=== PATIENT | female | born 1955 | race Caucasian/White ===

== ENCOUNTER → 2017-01-10 | Outpatient (CLI) | payer SELFPAY ==
--- NOTE | 2017-01-10 17:23 | MAM ---
History: Well woman exam. Date of exam: 01/10/2017 Services provided: Bilateral full field digital screening mammography. CAD, the images were reviewed with R2 computer aided detection. FINDINGS: Glandular tissue is scattered glandular pattern. Comparison with 2016 exam no dominant mass, architectural distortion or clustered microcalcification. IMPRESSION: Benign exam Recommendation: Routine annual mammography BIRAD CATEGORY: 2 BENIGN Electronically signed by: Agueda Grace MD 01/10/2017 5:22 PM CDT Workstation: [id number]
== END | disposition home or self-care (01) ==
LOC: MAMMO 08:22
PROVIDERS: ATTEND Nurse Practitioner Family
DX: Z12.31 Encounter for screening mammogram for malignant neoplasm of breast (principal)

== ENCOUNTER → 2018-01-16 | Outpatient (CLI) | payer OTHER, SELFPAY ==
--- NOTE | 2018-01-18 15:46 | MAM ---
EXAM DESCRIPTION: 3D Screening BILATERAL : Digital Mammography. CLINICAL HISTORY: 62 years Female SCREENING . No complaints. No family history breast cancer. Childbirth. Postmenopausal. Currently on HRT. COMPARISON: 2-D digital screening bilateral study 01/10/2017.. Report from prior examination also reviewed. TECHNIQUE: Bilateral CC and MLO projection full-field images, 3-D tomosynthesis digital mammographic technique. CAD not utilized. FINDINGS: The breast parenchymal density pattern is: Heterogeneously dense breast tissue, which may obscure small masses. No skin thickening or nipple retraction. Bilateral solitary microcalcifications. No new focal, stellate mass or density, focal asymmetry , and no suspicious microcalcifications bilaterally. Stable mammograms compared to prior study, taking into account differences in mammographic technique. IMPRESSION: BI-RADS CATEGORY: 2 - BENIGN FINDINGS. FOLLOW UP: Routine digital bilateral screening, one year interval from December 2017. Written communication explaining the IMPRESSION and follow-up, will be mailed to the patient and referring health care provider. According to the [employer], yearly mammograms are recommended starting at age 40 and continuing as long as a woman is in good health. Any breast change noted on a breast self-exam should be reported promptly to the patient's healthcare provider. Breast MRI is recommended for women with an approximately 20-25% or greater lifetime risk of breast cancer, including women with a strong family history of breast or ovarian cancer and women who have been treated for Hodgkin's disease. A negative mammographic report should not delay tissue diagnosis in patients with significant clinical history or physical findings. Extremely dense breast tissue limits the sensitivity of digital mammography. Electronically signed by: Familia Lees MD 01/18/2018 3:45 PM CDT
== END ==
LOC: MAMMO 08:17
PROVIDERS: ATTEND Nurse Practitioner Family
DX: Z12.31 Encounter for screening mammogram for malignant neoplasm of breast (principal)

== ENCOUNTER → 2019-03-19 | Outpatient (CLI) | payer MEDICARE | LOC: GMAE 11:01 | PROVIDERS: ATTEND Family Medicine | DX: E03.9 Hypothyroidism, unspecified (principal); Z79.899 Other long term (current) drug therapy ==

== ENCOUNTER → 2019-04-24 | Outpatient (CLI) | payer MEDICARE ==
--- NOTE | 2019-04-25 17:20 | MAM ---
EXAM DESCRIPTION: 3D Screening BILATERAL : Digital Mammography. CLINICAL HISTORY: 63 years Female SCREENING . No complaints. No personal or family history of breast cancer. Menarche age 10. Childbirth. Postmenopausal 30+ years. Currently on HRT. Lifetime risk of developing breast cancer (Tyrer-Cuzick model)(%): 6.9. COMPARISON: Bilateral screening digital breast tomosynthesis 01/16/2018 and 10 January 2017. TECHNIQUE: Bilateral CC and MLO projection full-field images, digital tomosynthesis mammographic technique. Bilateral digital 2-D full-field MLO images. CAD not available for tomosynthesis or 2-D images. FINDINGS: The breast parenchymal density pattern is: Heterogeneously dense breast tissue, which may obscure small masses. No skin thickening or nipple retraction. Dense is tissues are in the anterior two thirds of each breast and more laterally than medially. No new focal, stellate mass or density, focal asymmetry , and no suspicious microcalcifications bilaterally. Stable mammograms compared to prior study. Taking into account, differences in mammographic technique. IMPRESSION: BI-RADS CATEGORY: 1 - NEGATIVE FOLLOW UP: Routine digital bilateral screening, one year interval from April 2019. Written communication explaining the findings and follow-up, will be mailed to the patient and referring health care provider. According to the [employer], yearly mammograms are recommended starting at age 40 and continuing as long as a woman is in good health. Any breast change noted on a breast self-exam should be reported promptly to the patient's healthcare provider. Breast MRI is recommended for women with an approximately 20-25% or greater lifetime risk of breast cancer, including women with a strong family history of breast or ovarian cancer and women who have been treated for Hodgkin's disease. A negative mammographic report should not delay tissue diagnosis in patients with significant clinical history or physical findings. Extremely dense breast tissue limits the sensitivity of digital mammography. Electronically signed by: Familia Lees MD 04/25/2019 5:19 PM CDT
== END ==
LOC: MAMMO 15:20
PROVIDERS: ATTEND Family Medicine
DX: Z12.31 Encounter for screening mammogram for malignant neoplasm of breast (principal)

== ENCOUNTER → 2020-04-29 | Outpatient (CLI) | payer MEDICARE ==
--- NOTE | 2020-04-29 12:53 | CT ---
EXAM DESCRIPTION: Head CLINICAL HISTORY: 65 years Female, CONTUSION OF THE HEAD COMPARISON: None. TECHNIQUE: Axial images obtained from the skull base to the vertex without intravenous contrast with images. Coronal and sagittal reformations provided. This exam was performed according to our departmental dose-optimization program, which includes automated exposure control, adjustment of the mA and/or kV according to patient size and/or use of iterative reconstruction technique. Time Last Seen Well (If known) for Code Stroke: n/a FINDINGS: Brain Parenchyma, ventricles, meninges, and extra-axial spaces: Mild general cerebral atrophy. [id number] Nonspecific white matter hypodensities in the cerebral hemispheres likely related to ischemic small vessel disease. Possible difficulty differentiating a small acute infarction given these hypodensities. No acute intracranial hemorrhage. No abnormal extra-axial fluid collection. Vascular: Atherosclerosis is within the carotid siphons. Calvarium, paranasal sinuses, mastoids, and orbits: Calvarium intact. Visualized paranasal sinuses and mastoid air cells clear. Orbits unremarkable. IMPRESSION: 1. No acute intracranial abnormality. 2. Mild senescent changes. Electronically signed by: Berhane Jewell MD 04/29/2020 12:51 PM CDT
== END ==
LOC: GMAE 11:56
PROVIDERS: ATTEND Family Medicine
DX: S00.83XA Contusion of other part of head, initial encounter (principal); G31.1 Senile degeneration of brain, not elsewhere classified; R09.89 Other specified symptoms and signs involving the circulatory and respiratory systems

== ENCOUNTER → 2020-09-16 | Outpatient (CLI) | payer MEDICARE | LOC: GMAE 17:30 | PROVIDERS: ATTEND Family Medicine | DX: L64.9 Androgenic alopecia, unspecified (principal) ==